=== PATIENT | male | born 1960 | race Caucasian/White ===

== ENCOUNTER 2025-03-24 05:58 | Day surgery (SDC) | payer MEDICARE, OTHER ==
[~2025-03-24] VITALS: Ht 177.8 cm; Wt 84.0 kg
[2025-03-24] VITALS (11 sets, daily range): BP systolic 113–151; BP diastolic 66–88
[~2025-03-24 05:58] MED LIST: EZALLOR SPRINKLE5 MG PO; EZET10; LOSA25 PO
[2025-03-24] MEDS ORDERED: FURO40 PO (06:21)
[2025-03-24] MEDS ORDERED: METO50ER PO (06:21)
[2025-03-24] MEDS ORDERED: POTCHL20ER PO (06:22)
[2025-03-24] MEDS ORDERED: Benzocaine Oral Spray 0.5ML UD ONE (06:31)
[2025-03-24] MEDS ORDERED: NS 1,000 ML IV ONE (06:38)
--- NOTE | 2025-03-24 07:04 | NUR ---
ASSUMED CARE FROM ANESTHESIA. PT IS AWAKE AND VERBALIZING WELL.
--- NOTE | 2025-03-24 08:00 | NUR ---
PT AND VERBALIZED UNDERSTANING OF WRITTEN AND VERBAL D/C INST. IV REMOVED. PT TAKING PO FLUIDS WELL. PT AMB TO THE W/C /S DIFFICULTY. PT TAKEN OUT OF THE DEPARTMENT VIA W/C.
[2025-03-24] MEDS ORDERED: Lidocaine HCl 1% 5 ML SYR INFIL ONE (10:17)
[2025-03-24] MEDS ORDERED: Propofol 10mg/ml 20 ml Vial (Procedural) IV ONE (10:17)
== END 2025-03-24 23:37 | disposition home or self-care (01) ==
LOC: MHTC 05:58
DX: Q21.11 Secundum atrial septal defect (principal); I70.0 Atherosclerosis of aorta; I11.0 Hypertensive heart disease with heart failure; I50.32 Chronic diastolic (congestive) heart failure; E78.00 Pure hypercholesterolemia, unspecified; Z79.899 Other long term (current) drug therapy
CPT/HCPCS: 93312; 93325; A9270; J2704; J7030

== ENCOUNTER 2025-07-21 02:11 | Emergency (ER) | payer MEDICARE, OTHER ==
[~2025-07-21] VITALS: Ht 177.8 cm; Wt 84.8 kg
[~2025-07-21 02:11] MED LIST changes: +FURO40 PO; +METO50ER PO; +POTCHL20ER PO
[2025-07-21] MEDS ORDERED: CLOP75 PO (02:55)
[2025-07-21] MEDS ORDERED: MELO7.5 PO (02:56)
[2025-07-21] MEDS ORDERED: Saw Palmetto160 MG (02:56)
[2025-07-21 03:02] LABS: BASOPHILS ABSOLUTE AUTO 0.03 K/mm3 (0.00-0.23); BASOPHILS PERCENT AUTO 0 % (0-2); EOSINOPHILS ABSOLUTE AUTO 0.09 K/mm3 (0.00-0.68); EOSINOPHILS PERCENT AUTO 1 % (0-6); Hematocrit 41.6 % (37.0-53.0); Hemoglobin 14.6 g/dL (13.5-17.5); IMMATURE GRAN ABSOLUTE AUTO 0.03 K/mm3 (0.00-0.10); IMMATURE GRAN PERCENT AUTO 0 % (0-1); LYMPHOCYTES ABSOLUTE AUTO 3.50 K/mm3 (0.84-5.20); LYMPHOCYTES PERCENT AUTO 39 % (21-46); MONOCYTES ABSOLUTE AUTO 0.86 K/mm3 (0.16-1.47); MONOCYTES PERCENT AUTO 10 % (4-13); Mean Corpuscular HGB Conc 35.1 g/dL (31.5-36.5); Mean Corpuscular Volume 86 fL (80-100); NEUTROPHILS ABSOLUTE AUTO 4.57 K/mm3 (1.96-9.15); NEUTROPHILS PERCENT AUTO 50 % (41-73); NRBC ABSOLUTE 0.00 K/mm3 (0.00-0.02); NRBC Auto 0.0 /100 WBC (0.0-0.2); Platelet Count 222 K/mm3 (150-400); RDW Coefficient Variation 12.5 % (11.7-14.2); RDW Standard Deviation 39.3 fL (35.1-46.3)
[2025-07-21 03:15] LABS: Alanine Aminotransfer (ALT/SGP 46.0 U/L (12-78); Albumin, Blood 3.9 g/dL (3.4-5.0); Albumin/Globulin Ratio 1.0 (0.8-1.8); Anion Gap 9.0 mmol/L (3-11); Aspartate Aminotrans (AST/SGOT 23.0 U/L (12-37); Bilirubin, Total 0.5 mg/dL (0.1-1.0); Blood Urea Nitrogen 26.0 mg/dL (8-24); CO2, Blood 28.0 mmol/L (21-32); Calcium, Blood 9.2 mg/dL (8.5-10.1); Chloride, Blood 106.0 mmol/L (98-108); Creatinine, Blood 1.07 mg/dL (0.60-1.20); Globulin, Blood 3.9 g/dL (2.2-4.0); Glucose, Blood 118.0 mg/dL (70-99); Magnesium, Blood 2.4 mg/dL (1.6-2.4); Phosphorus, Blood 3.6 mg/dL (2.5-4.9); Potassium, Blood 4.0 mmol/L (3.5-5.5); Sodium, Blood 139.0 mmol/L (136-145); Total Protein, Blood 7.8 g/dL (6.4-8.2)
[2025-07-21] MEDS ORDERED: NS 1,000 ML IV SCH (03:30)
[2025-07-21 05:45] VITALS: BP 130/78
== END 2025-07-21 05:45 | disposition home or self-care (01) ==
LOC: ER 02:11
PROVIDERS: Emergency Medicine
DX: I48.91 Unspecified atrial fibrillation (principal); E86.0 Dehydration; Z59.89 Other problems related to housing and economic circumstances; Z79.899 Other long term (current) drug therapy
CPT/HCPCS: 71046; 80053; 83690; 83735; 84100; 84484; 85025; 93005; 93010; 99285-25; J7030